=== PATIENT | male | born 1940 ===

== ENCOUNTER 2024-08-12 04:03 | Observation (INO) | payer OTHER ==
[~2024-08-12] VITALS: Ht 175.3 cm; Wt 87.6 kg
[2024-08-12] MEDS ORDERED: Ondansetron HCl 2 MG / ML 2ML Vial IV PRN ×2 (04:20→06:10)
[2024-08-12 04:33] LABS: BASOPHILS ABSOLUTE AUTO 0.04 K/mm3 (0.00-0.23); BASOPHILS PERCENT AUTO 0 % (0-2); EOSINOPHILS ABSOLUTE AUTO 0.11 K/mm3 (0.00-0.68); EOSINOPHILS PERCENT AUTO 1 % (0-6); Hemoglobin 14.1 g/dL (13.5-17.5); IMMATURE GRAN ABSOLUTE AUTO 0.04 K/mm3 (0.00-0.10); IMMATURE GRAN PERCENT AUTO 0 % (0-1); LYMPHOCYTES ABSOLUTE AUTO 0.94 K/mm3 (0.84-5.20); LYMPHOCYTES PERCENT AUTO 10 % (21-46); MONOCYTES ABSOLUTE AUTO 0.36 K/mm3 (0.16-1.47); MONOCYTES PERCENT AUTO 4 % (4-13); Mean Corpuscular HGB 27.4 pg (26.0-34.0); Mean Corpuscular HGB Conc 33.6 g/dL (31.5-36.5); Mean Corpuscular Volume 82 fL (80-100); Mean Platelet Volume 10.2 fL (9.1-12.4); NEUTROPHILS ABSOLUTE AUTO 7.67 K/mm3 (1.96-9.15); NEUTROPHILS PERCENT AUTO 84 % (41-73); Platelet Count 157 K/mm3 (150-400); RDW Coefficient Variation 14.7 % (11.7-14.2); RDW Standard Deviation 43.8 fL (35.1-46.3); Red Blood Cell Count 5.14 M/mm3 (4.30-5.90); White Blood Cell Count 9.16 K/mm3 (4.00-11.30)
[2024-08-12 05:01] LABS: Albumin, Blood 3.6 g/dL (3.4-5.0); Albumin/Globulin Ratio 1.2 (0.8-1.8); Bilirubin, Total 0.6 mg/dL (0.1-1.0); Bun/Creatinine Ratio 16.9 (12.0-20.0); Calcium, Blood 8.5 mg/dL (8.5-10.1); Creatinine, Blood 0.83 mg/dL (0.60-1.20); Globulin, Blood 3.1 g/dL (2.2-4.0); Potassium, Blood 3.6 mmol/L (3.5-5.5); Total Protein, Blood 6.7 g/dL (6.4-8.2)
[2024-08-12] MEDS ORDERED: FINA5 PO (05:34)
[2024-08-12] MEDS ORDERED: ELIQUIS5 M3 PO (05:35)
[2024-08-12] MEDS ORDERED: NEBIVOLOL HCL5 MG PO (05:36)
[2024-08-12] MEDS ORDERED: ROSUVASTATIN CA20 MG PO (05:36)
[2024-08-12] MEDS ORDERED: OMEP20ER PO (05:37)
[2024-08-12] MEDS ORDERED: Aspir 8181 MG PO (05:38)
[2024-08-12] MEDS ORDERED: Nitroglycerin 0.4 MG SUBL SL PRN ×2 (06:10→08:00)
[2024-08-12] MEDS ORDERED: Acetaminophen 325 MG TABLET PO PRN (06:15)
[2024-08-12] MEDS ORDERED: Nitroglycerin 0.4 MG SUBL SL ONE (08:00)
[2024-08-12] MEDS ORDERED: Carvedilol 3.125 MG Tab PO SCH (08:00)
[2024-08-12] MEDS ORDERED: Apixaban 5 MG Tab PO SCH (09:00)
[2024-08-12] MEDS ORDERED: Rosuvastatin Calcium 10 MG Tab PO SCH (09:00)
[2024-08-12] MEDS ORDERED: Enoxaparin 40 MG/0.4 ML SYR SC SCH (09:00)
[2024-08-12] MEDS ORDERED: Aspirin 81 MG Chew PO SCH (09:00)
[2024-08-12] MEDS ORDERED: Finasteride 5 MG Tab PO SCH (09:00)
[2024-08-12 09:24] VITALS: BP 178/99
[2024-08-12] MEDS ORDERED: Enoxaparin 100 MG/ML 1ML SYR SC SCH (11:00)
[2024-08-12 11:20] VITALS: BP 175/95
--- NOTE | 2024-08-12 12:02 | NUR ---
LOCKED POCKET KNIFE IN DRAWER
[2024-08-12] MEDS ORDERED: Caffeine Citrated 60 MG/3 ML Vial ONE (13:13)
[2024-08-12] MEDS ORDERED: Regadenoson 0.4 MG/5 ML SYRINGE ONE (13:13)
[2024-08-12 14:47] VITALS: BP 175/89
[2024-08-12 14:49] VITALS: BP 181/88
--- NOTE | 2024-08-12 14:59 | NUR ---
PATIENT BROUGHT UP FROM ER VIA WHEELCHAIR. A/OX4. ROOM AIR. NO LONGER COMPLAINS OF CHEST PAIN. DR. FARRELL ROUNDED AND ORDERED STRESS TEST WHICH IS NOW COMPLETE RESULTS PENDING. WELL AN ECHOCARDIOGRAM. PT IND IN ROOM. SKIN INTACT. APPETITE GOOD. TELEMETRY MONITORING. ABLE TO MAKE NEEDS KNOWN. EDUCATED RV REPAIRER BUTTON. PT ABLE TO UPDATE WITH HIS CELL PHONE AT BEDSIDE.
--- NOTE | 2024-08-12 15:08 | NUR ---
NOTIFIED DR. LIVINGSTON OF PATIENTS BLOOD PRESSURE OF 181/88 AFTER COREG DOSE AND STRESS TEST. DR. LIVINGSTON STATED SHE WANTS TO WAIT FOR ECHO RESULTS BEFORE INTERVENING AT THIS TIME AND TO RECHECK B/P WITHIN 1-2 HOURS. PT HAS A 1700 DOSE OF COREG LATER TODAY.
[2024-08-12] MEDS ORDERED: Labetalol HCL 5 MG/ML 4ML Injection (Single Dose) IV PRN (15:35)
[2024-08-12 15:54] VITALS: BP 151/86
[2024-08-12] MEDS ORDERED: Losartan Potassium 50 MG Tab PO SCH (16:00)
[2024-08-12 21:15] VITALS: BP 144/87
[2024-08-13 01:00] VITALS: BP 173/97
[2024-08-13 04:37] VITALS: BP 162/86
[2024-08-13 05:01] LABS: BASOPHILS ABSOLUTE AUTO 0.04 K/mm3 (0.00-0.23); BASOPHILS PERCENT AUTO 1 % (0-2); EOSINOPHILS ABSOLUTE AUTO 0.24 K/mm3 (0.00-0.68); EOSINOPHILS PERCENT AUTO 3 % (0-6); Hematocrit 42.3 % (37.0-53.0); Hemoglobin 14.3 g/dL (13.5-17.5); IMMATURE GRAN ABSOLUTE AUTO 0.01 K/mm3 (0.00-0.10); IMMATURE GRAN PERCENT AUTO 0 % (0-1); LYMPHOCYTES ABSOLUTE AUTO 1.79 K/mm3 (0.84-5.20); LYMPHOCYTES PERCENT AUTO 23 % (21-46); MONOCYTES ABSOLUTE AUTO 0.53 K/mm3 (0.16-1.47); MONOCYTES PERCENT AUTO 7 % (4-13); Mean Corpuscular HGB Conc 33.8 g/dL (31.5-36.5); Mean Corpuscular Volume 80 fL (80-100); Mean Platelet Volume 9.8 fL (9.1-12.4); NEUTROPHILS ABSOLUTE AUTO 5.31 K/mm3 (1.96-9.15); NEUTROPHILS PERCENT AUTO 67 % (41-73); Platelet Count 181 K/mm3 (150-400); RDW Coefficient Variation 14.7 % (11.7-14.2); RDW Standard Deviation 42.5 fL (35.1-46.3); White Blood Cell Count 7.92 K/mm3 (4.00-11.30)
[2024-08-13 05:44] LABS: Alanine Aminotransfer (ALT/SGP 24 U/L (12-78); Albumin, Blood 3.5 g/dL (3.4-5.0); Albumin/Globulin Ratio 1.2 (0.8-1.8); Alk Phos 57 U/L (50-136); Anion Gap 9 mmol/L (3-11); Aspartate Aminotrans (AST/SGOT 15 U/L (12-37); Bilirubin, Total 0.6 mg/dL (0.1-1.0); Blood Urea Nitrogen 14 mg/dL (8-24); Bun/Creatinine Ratio 13.6 (12.0-20.0); CO2, Blood 26 mmol/L (21-32); Calcium, Blood 8.3 mg/dL (8.5-10.1); Chloride, Blood 108 mmol/L (98-108); Cholesterol 93 mg/dL (50-200); Creatinine, Blood 1.03 mg/dL (0.60-1.20); Glomerular Filtration Rate 73 (60-); Glucose, Blood 100 mg/dL (70-99); Magnesium, Blood 1.7 mg/dL (1.6-2.4); Potassium, Blood 3.6 mmol/L (3.5-5.5); Sodium, Blood 139 mmol/L (136-145); Total Protein, Blood 6.5 g/dL (6.4-8.2); Triglycerides 146 mg/dL (30-160)
[2024-08-13] MEDS ORDERED: Omeprazole 20 MG CapCR PO SCH (06:00)
--- NOTE | 2024-08-13 06:21 | NUR ---
SHIFT SUMMARY A&O X4. IND. DENY CHEST PAIN OR ANY ABNORMAL S/SX. TELE CONSISTENTLY STABLE. ADVISED TO REPORT ANY PAIN. WELL RESTED AND NO SIGN OF DISTRESS EXCEPT FOR MILD DISCOMFORT ON THE TAPE OF THE IV CANNULA.
[2024-08-13] MEDS ORDERED: Polyethylene Glycol 3350 17 gm PO PRN (07:25)
[2024-08-13 07:58] VITALS: BP 148/92
[2024-08-13 11:25] VITALS: BP 146/75
[2024-08-13] MEDS ORDERED: LOSA50 PO (12:49)
[2024-08-13] MEDS ORDERED: NITR.4SL SL (12:50)
--- NOTE | 2024-08-13 13:08 | NUR ---
DISCHARGE NOTE PATIENT EDUCATED ON DISCHARGE PACKET AND INSTRUCTIONS. DR. FARRELL REVIEWED TEST RESULTS WITH PATIENT AND AT BEDSIDE AND GAVE THEM HIS CARD WITH CONTACT INFO TO FOLLOW UP WITHIN THE WEEK, SINCE HE IS NOT FROM THIS AREA AND CONTINUING THEIR TRAVELS. PRESCRIPTIONS WERE FAXED TO [facility] IN [place]. PT BELONGINGS GATHERED AND RETURNED, POCKET KNIFE IN DRAWER RETURNED. IV REMOVED. NO NEW QUESTIONS OR CONCERNS PRIOR TO DC.
== END 2024-08-13 13:20 | disposition home or self-care (01) ==
LOC: EDBD 04:03 → ER 04:03 → ERHOLD 04:04 → MEDS 09:22
PROVIDERS: Emergency Medicine; ADMIT Student in an Organized Health Care Education/Training Program
DX: I25.118 Atherosclerotic heart disease of native coronary artery with other forms of angina pectoris (principal); I25.2 Old myocardial infarction; Z95.1 Presence of aortocoronary bypass graft
CPT/HCPCS: 36415; 71046; 78452; 80053; 82465; 83036; 83690; 83735; 83880; 84443; 84478; 84484; 85025; 93005; 93010; 93017; 93306; 96372; 99285-25; A9270; A9500; G0378; J0706; J1650; J2785